=== PATIENT | female | born 1965 | race Caucasian/White ===

== ENCOUNTER 2021-06-05 14:54 | Outpatient (CLI) | payer MEDICAID, OTHER | END 2021-06-05 14:55 | disposition critical access hospital (66) | LOC: EMS 14:54 | DX: S99.922A Unspecified injury of left foot, initial encounter (principal); W00.0XXA Fall on same level due to ice and snow, initial encounter; Y93.89 Activity, other specified; Y92.008 Other place in unspecified non-institutional (private) residence as the place of occurrence of the external cause | CPT/HCPCS: A0425; A0429; A0999 ==

== ENCOUNTER 2021-06-05 15:20 | Emergency (ER) | payer MEDICAID, OTHER ==
--- NOTE | 2021-06-05 16:13 | ED Physician Documentation ---
History of Present Illness - Stated complaint Stated Complaint: ANXIETY/DEPRESSION - Chief complaint Chief Complaint: Ext Problem - Additonal information Additional information: 56-year-old female presents emergency department to have her left foot and ankle evaluated. Reports a slip and fall about a week ago. She has swelling in the medial portion of the foot under the arch and has difficulty bearing weight. She was in detox but they will not accept her back unless we can clear the foot of injury. No other complaints at this time. Pt is attempting to stop alcohol use. Last drink about 24 hours ago. Review of Systems Constitutional: denies: Fever, Chills Throat: reports: Reviewed and negative Cardiac: reports: Reviewed and negative Respiratory: reports: Reviewed and negative GI: reports: Reviewed and negative : reports: Reviewed and negative Skin: reports: Reviewed and negative Musculoskeletal: reports: Joint pain (Left foot ankle) Neurologic: reports: Reviewed and negative PD PAST MEDICAL HISTORY - Allergies Allergies/Adverse Reactions: Allergies Allergy/AdvReac Type Severity Reaction Status Date / Time No Known Drug Allergies Allergy Verified 06/05/21 15:40 PD ED PE NORMAL - General General: Alert and oriented X 3, No acute distress, Well developed/nourished - Back Back: No CVA TTP, No spinal TTP - Extremities Extremities: No deformity, Other (Swelling medial left foot as well as ecchymosis on the sole. Full range of motion of ankle. Normal inversion and eversion of the foot. 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 Third and fourth tarsal metatarsal joint subluxation concerning for a Lisfranc injury.) PD MEDICAL DECISION MAKING - ED course Complexity details: reviewed results, re-evaluated patient, considered differential ED course: 56-year-old female presents from our local detox facility to obtain medical clearance before she is admitted as she had a fall about a week ago in the snow. She now has significant swelling of the left foot with ecchymosis on the sole. Unable to bear weight. X-ray unfortunately shows a Lisfranc fracture and dislocation. This finding was found with our on-call surgeon. He would recommend placement in a splint and prompt follow-up early next week with any orthopedist. She will likely require surgery in order to correct this defect. Patient is medically cleared to return to detox however operative repair may ultimately trump detox. Emergent return precautions were discussed. Departure - Departure Disposition: Home, Self Care Clinical Impression: Lisfranc fracture Lisfranc dislocation Qualifiers: Encounter type: initial encounter Laterality: left Qualified Code(s): S93.325A - Dislocation of tarsometatarsal joint of left foot, initial encounter Condition: Stable Record reviewed to determine appropriate education?: Yes Instructions: Lisfranc Joint Injury About, Lisfranc Joint Injury Tx Follow-Up: Alexis Ugarte MD [Provider Admit Priv/Credential] - Comments: Adriana you were seen in the emergency department to obtain medical clearance to return to detox. They were requesting evaluation of your left foot injury. The x-ray shows a specific type of fracture pattern called a Lisfranc injury. This always needs to be surgically repaired. Surgery cannot occur until swelling in the foot is improved. We have placed you in a temporary fiberglass splint and are giving you crutches. It is going to be very important that you follow-up with an orthopedic doctor sometime in the next week. Without proper repair of this injury you could develop a lifetime of pain and disability in that foot. If you remain here on the [place] I have given you the phone number of Dr. Ugarte who is our orthopedic surgeon. However if you have a surgeon in the [facility] area that you would prefer to follow-up I do recommend that you begin making phone calls immediately in order to do this. At any point you find that your splint gets wet, you develop numbness or tingling in your toes, you have fevers or uncontrolled vomiting then you are to return immediately to the ER. You are medically cleared to return to detox.
--- NOTE | 2021-06-05 16:15 | XRAY Report ---
PROCEDURE: Ankle 2 View LT INDICATIONS: fall; r/o fx TECHNIQUE: 2 views of the ankle were acquired. COMPARISON: None FINDINGS: Bones: No fractures or dislocations. Ankle mortise is normally aligned. No suspicious bony lesions . Soft tissues: No tibiotalar joint effusion. Achilles tendon appears normal. IMPRESSION: No fracture. No osseous lesion. If there are persistent symptoms or continued clinical c oncern for pathology, then repeat plain film radiographs (7-10 days) or advanced imaging (CT, MR, bon e scan) should be considered for further evaluation. Reviewed by: Katina Hein MD, PhD on 06/05/2021 4:13 PM PST Approved by: Katina Hein MD, PhD on 06/05/2021 4:13 PM PST Station ID: [id number]
--- NOTE | 2021-06-05 16:30 | XRAY Report ---
PROCEDURE: Foot 3 View LT INDICATIONS: fall; swelling medially TECHNIQUE: 3 views of the foot were acquired. COMPARISON: None FINDINGS: Bones: No fractures or dislocations. No suspicious bony lesions. Third and fourth tarsal-metatarsal subluxation concerning for Lisfranc injury. Soft tissues: No tibiotalar joint effusion. Achilles tendon appears normal. IMPRESSION: 1. Nondisplaced transverse fracture of the proximal fourth metatarsal. 2. Third and fourth tarsal-metatarsal joint subluxation concerning for a Lisfranc injury. Recommend M RI of the foot for additional evaluation. Reviewed by: Katina Hein MD, PhD on 06/05/2021 4:28 PM PST Approved by: Katina Hein MD, PhD on 06/05/2021 4:28 PM PST Station ID: [id number]
[2021-06-05 18:58] VITALS: BP 150/60
== END 2021-06-05 18:58 | disposition home or self-care (01) ==
LOC: EDBD → ED 15:20
DX: S93.325A Dislocation of tarsometatarsal joint of left foot, initial encounter (principal); W00.0XXA Fall on same level due to ice and snow, initial encounter
CPT/HCPCS: 99283

== ENCOUNTER 2021-06-08 15:22 | Emergency (ER) | payer MEDICAID ==
[2021-06-08 15:32] VITALS: BP 113/94
--- NOTE | 2021-06-08 16:19 | ED Physician Documentation ---
History of Present Illness - Stated complaint Stated Complaint: WET ORTHOGLASS,SPLINT - Chief complaint Chief Complaint: General - History obtained from History obtained from: Patient - Additonal information Additional information: Patient comes emergency department chief complaint of "I got my splint wet". She was seen here recently for a left-sided Lisfranc fracture and states that she was taking a shower and that some water leaked past the plastic wrap she had placed around her splint and that now her splint is all wet. Patient denies any other complaints at this time. She states she has had some swelling and pain in the foot and that she does not like using crutches, but that somebody from detox is bringing her a knee scooter to use. The patient has an appointment coming up in 4 days with the foot and ankle sales and marketing specialist. Patient denies any other complaints at this time. She states she has not been bearing weight on the foot. Review of Systems Ten Systems: 10 systems reviewed and negative Constitutional: reports: Reviewed and negative Eyes: reports: Reviewed and negative Ears: reports: Reviewed and negative Nose: reports: Reviewed and negative Throat: reports: Reviewed and negative Cardiac: reports: Reviewed and negative Respiratory: reports: Reviewed and negative GI: reports: Reviewed and negative : reports: Reviewed and negative Skin: reports: Reviewed and negative Musculoskeletal: reports: Reviewed and negative Neurologic: reports: Reviewed and negative Psychiatric: reports: Reviewed and negative Endocrine: reports: Reviewed and negative Immunocompromised: reports: Reviewed and negative PD PAST MEDICAL HISTORY - Allergies Allergies/Adverse Reactions: Allergies Allergy/AdvReac Type Severity Reaction Status Date / Time No Known Drug Allergies Allergy Verified 06/08/21 15:32 PD ED PE NORMAL - Vitals Vital signs reviewed: Yes - General General: Alert and oriented X 3, No acute distress, Well developed/nourished - HEENT HEENT: Atraumatic, PERRL, EOMI, Moist mucous membranes - Cardiac Cardiac: Strong equal pulses - Respiratory Respiratory: No respiratory distress - Derm Derm: Normal color, Warm and dry, No rash - Extremities Extremities: No deformity, Other (Moderate edema left foot without contusion. Good distal pulses. Moving toes without difficulty. Posterior mold splint in place, which is wet.) - Neuro Neuro: Alert and oriented X 3 - Psych Psych: Normal mood, Normal affect Results - Vitals Vitals: Vital Signs - 24 hr 06/08/21 15:30 Temperature 36.5 C Heart Rate 71 Respiratory 16 Rate Blood Pressure 113/94 H O2 Saturation 100 Oxygen O2 Source Room air PD MEDICAL DECISION MAKING - ED course Complexity details: considered differential, d/w patient ED course: Patient splint was replaced. We have discussed that the patient should take a bath and keep her foot up above the water and the side of the tub, rather than trying to cover the splint and take a shower. Patient is encouraged to keep her appointment with the orthopedist this week. Departure - Departure Disposition: 01 Home, Self Care Clinical Impression: Lisfranc fracture Condition: Stable Instructions: ED Fx Foot Comments: Please take a bath instead of a shower, as we have discussed, to prevent getting your splint wet again. Please follow-up with the foot and ankle specialist as you are planning to do this week. Continue to remain nonweightbearing on the foot until cleared by orthopedics. You may use crutches or the knee scooter.
== END 2021-06-08 16:56 | disposition home or self-care (01) ==
LOC: ED 15:22
DX: S92.812D Other fracture of left foot, subsequent encounter for fracture with routine healing (principal); X58.XXXD Exposure to other specified factors, subsequent encounter
CPT/HCPCS: 99281; 99282